=== PATIENT | female | born 1955 | race Caucasian/White ===

== ENCOUNTER 2017-05-27 19:41 | Emergency (ER) | payer OTHER ==
[~2017-05-27] VITALS: Ht 157.5 cm; Wt 74.6 kg
[2017-05-27 20:35] LABS: HEMATOCRIT 37.9 % (36.0-46.0); MCH 30.9 PG (29.0-34.0); MCHC 33.2 G/DL (30.0-36.0); MCV 92.9 FL (83-99); MEAN PLAT.VOLUME 9.8 uM^3 (9.5-12.4); PLATELET COUNT 212 K/uL (156-360); RBC DIS.WIDTH-CV 12.6 % (11.8-14.6); RED BLOOD COUNT 4.08 M/uL (3.80-5.20); WHITE BLOOD COUNT 11.5 K/uL (4.1-10.2)
[2017-05-27 20:47] LABS: CHLORIDE 103 mEq/L (99-109); POTASSIUM 4.1 mEq/L (3.7-5.4); SODIUM 137 mEq/L (136-147)
[2017-05-27 20:49] LABS: GLUCOSE 105 mg/dL (70-99)
[2017-05-27 20:50] LABS: ANION GAP 10 MEQ/L (2-14)
[2017-05-27 20:51] LABS: TOTAL BILIRUBIN 1.1 mg/dL (0.0-1.0)
[2017-05-27 20:52] LABS: ALKALINE PHOSPHATASE 81 IU/L (3-129)
[2017-05-27 20:53] LABS: GFR ESTIMATE (CALCULATED) > 59 mL/min/
[2017-05-27 20:54] LABS: UREA NITROGEN (BUN) 16 mg/dL (9-23)
[2017-05-27 20:56] LABS: LIPASE 10 U/L (1.0-51.0)
[2017-05-27 21:32] LABS: TROP-I INTERPRETATION NEGATIVE; TROPONIN-I < 0.01 ng/mL (0.0-0.30)
[2017-05-27 22:23] LABS: DIRECT BILIRUBIN 0.4 mg/dL (0.0-0.3)
[2017-05-27] MEDS ORDERED: FLAGYL500 MG PO (23:19)
[2017-05-27] MEDS ORDERED: NORCO 5/3251 TABLET PO (23:19)
[2017-05-27] MEDS ORDERED: CIPRO500 MG PO (23:19)
[2017-05-27] MEDS ORDERED: ZOFRAN ODT4 MG PO (23:19)
[2017-05-27 23:48] VITALS: BP 122/86
== END 2017-05-27 23:49 | disposition home or self-care (01) ==
LOC: EME 19:41
PROVIDERS: Nurse Practitioner Family
DX: K29.70 Gastritis, unspecified, without bleeding (principal); K57.92 Diverticulitis of intestine, part unspecified, without perforation or abscess without bleeding; D72.829 Elevated white blood cell count, unspecified; I10 Essential (primary) hypertension; K21.9 Gastro-esophageal reflux disease without esophagitis; Z96.653 Presence of artificial knee joint, bilateral
CPT/HCPCS: 71020; 74177; 76705; 80053; 81003; 82248; 83690; 84484; 85027; 93005; 99281; 99285